=== PATIENT | male | born 1955 | race Caucasian/White ===

== ENCOUNTER 2023-02-19 08:16 | Day surgery (SDC) | payer MEDICARE, SELFPAY ==
[2023-02-19 08:37] VITALS: BP 147/92; PULSE 80; RESP 16; TEMP 36.1; O2SAT 97; BMI 39.2
[2023-02-19] MEDS: Lactated Ringers 1,000 ML 15 ML IV (08:45)
--- NOTE | 2023-02-19 09:18 | PCM.HP.STD ---
[facility] - General General Date of Admission: 02/19/23 Date of Service: 02/19/23 Chief Complaint: Screening colonoscopy HPI Narrative ERIK BEDOYA, is a 68 M who presents today for screening colonoscopy. He has not had a colonoscopy in the past. He has past have hypertension and mild gastroesophageal reflux disease both of which are controlled on medications. He is not having chest pain or shortness of breath. He does not have any nausea, vomiting or diarrhea. Overall is in very good health. [facility] Medical History (Updated 02/12/23 @ 14:25 by Sonal Prado) Arthritis Back pain Easy bruising Former smoker GERD (gastroesophageal reflux disease) History of stress test HTN (hypertension) Hyperlipidemia Wears glasses Wears hearing aid Home Medications lisinopril 30 mg tablet 30 mg PO DAILY 01/17/23 [History Last Taken 02/19/23] omeprazole 20 mg capsule,delayed release 20 mg PO DAILY 01/17/23 [History Last Taken 02/19/23] Allergy/AdvReac Type Severity Reaction Status Date / Time No Known Allergies Allergy Verified 02/19/23 08:32 Surgical History (Updated 02/12/23 @ 14:25 by Sonal Prado) History of excision of lesion Hx of left cataract extraction Hx of right cataract extraction Social History (Updated 01/17/23 @ 08:33 by Vandana Olivares) household members: none housing: apartment current occupational status: retired Smoking Status: Former smoker alcohol intake: never substance use type: does not use ROS Review of Systems ROS Unobtainable: other Constitutional Constitutional: Denies fatigue, fever(s), poor appetite, weight gain or weight loss ENT HEENT: Denies mouth lesions Cardiovascular Cardiovascular: Denies abdominal bloating, abdominal edema or abdominal pain Respiratory/Chest Respiratory/Chest: Denies change in mental status, change in phlegm color, chest congestion or chest tightness Gastrointestinal Gastrointestinal: Denies belching, bloating, change in bowel habits, change in stool character, chewing difficulty, coffee ground emesis, constipation, cramping, diarrhea, dyspepsia, dysphagia, early satiety, excessive flatus, fecal incontinence, heartburn, hematemesis, hematochezia, hemorrhoids, loose stools, melena, nausea, odynophagia, rectal bleeding, tenesmus, vomiting or weight changes Genitourinary Genitourinary: Denies abdominal discomfort, burning urination or itching Musculoskeletal Musculoskeletal: Reports as per HPI; Denies muscle weakness or myalgias Integumentary Integumentary: Denies jaundice Neurologic Neurologic: Denies lack of coordination or weakness Psychiatric Psychiatric: Denies confusion, depression, memory loss, mood swings, paranoia or suicidal ideation Endocrine Endocrinology: Denies systems reviewed and no addt'l complaints, except as documented Hematologic/Lymphatic Hematologic/Lymphatic: Denies anemia, easy bleeding, easy bruising or lymphadenopathy Allergic/Immunologic Allergic/Immunologic: Denies systems reviewed and no addt'l complaints, except as documented Vital Signs Vital Signs Vital Signs: 02/19/23 08:37 02/19/23 08:37 Temperature 97 F L Temperature Source Temporal Pulse Rate 80 Respiratory Rate 16 Respiratory Pattern Normal Blood Pressure 147/92 H Blood Pressure Mean 110 Blood Pressure Source Monitor Blood Pressure Position Sitting Blood Pressure Location Right Arm Pulse Ox 97 Oxygen Delivery Method Room Air Weight Weight: 273 lb 5.971 oz Body Mass Index (BMI) 39.2 Physical Exam Const alert General Appearance: cooperative Orientation / Consciousness: oriented to person HEENT hearing grossly normal bilaterally Head and Scalp: normal to inspection Face and Sinus: face symmetric Nose: external nose normal Mouth: oral and palatal mucosa normal Eyes conjunctivae normal General Eye: normal appearance of both eyes Neck full ROM General: normal visual inspection Lymph Lymphatic: no lymphadenopathy noted Chest inspection of chest normal and palpation of chest normal Chest: symmetrical chest wall rise Resp normal respiratory effort Effort and Inspection: able to speak in complete sentences Cardio regular rate GI non-distended Percussion: normal to percussion Rectal Exam: deferred Neuro Speech: speech normal Gait (Neuro): normal gait Assessment & Plan Assessment/Plan (1) Encounter for screening for malignant neoplasm of colon: PLAN: He was explained alternatives, risk, benefits include not withstanding bleeding, infection, sepsis, perforation, need for emergent surgery and . He will have an ASA of 3.
[2023-02-19 09:40] VITALS: BP 115/80; BP 147/92; PULSE 74; RESP 16; TEMP 36.1; O2SAT 94
--- NOTE | 2023-02-19 09:42 | OP.COLON_ITS ---
Patient Name: Fritz Casanova Procedure Date: 02/19/2023 9:19 AM Date of : 1955 Age: 68 Procedure: Colonoscopy Indications: Screening for colorectal malignant neoplasm Providers: Garrett Tipton DO Referring MD: Chastity Ortiz [facility] Medicines: Monitored Anesthesia Care Patient Profile: This is a 68 year old male. Refer to note in patient chart for documentation of history and physical. Last Colonoscopy: none. The patient's first colonoscopy is today. Complications: No immediate complications. Procedure: Pre-Anesthesia Assessment: - Prior to the procedure, a History and Physical was performed, and patient medications and allergies were reviewed. The patient is competent. The risks and benefits of the procedure and the sedation options and risks were discussed with the patient. All questions were answered and informed consent was obtained. Patient identification and proposed procedure were verified by the physician in the pre-procedure area. Mental Status Examination: alert and oriented. Respiratory Examination: clear to auscultation. CV Examination: normal. Prophylactic Antibiotics: The patient does not require prophylactic antibiotics. Prior Anticoagulants: The patient has taken no anticoagulant or antiplatelet agents. ASA Grade Assessment: II - A patient with mild systemic disease. After reviewing the risks and benefits, the patient was deemed in satisfactory condition to undergo the procedure. The anesthesia plan was to use monitored anesthesia care (MAC). Immediately prior to administration of medications, the patient was re-assessed for adequacy to receive sedatives. The heart rate, respiratory rate, oxygen saturations, blood pressure, adequacy of pulmonary ventilation, and response to care were monitored throughout the procedure. The physical status of the patient was re-assessed after the procedure. After I obtained informed consent, the scope was passed under direct vision. Throughout the procedure, the patient's blood pressure, pulse, and oxygen saturations were monitored continuously. The Colonoscope was introduced through the anus and advanced to the cecum, identified by appendiceal orifice and ileocecal valve. The colonoscopy was performed without difficulty. The patient tolerated the procedure well. The quality of the bowel preparation was adequate. The ileocecal valve, appendiceal orifice, and rectum were photographed. Scope In: 9:27:37 AM Scope Withdrawal Time 0 hours 7 minutes 13 seconds Scope Out: 9:36:56 AM Total Procedure Duration Time 0 hours 9 minutes 19 seconds Findings: The perianal and digital rectal examinations were normal. Non-bleeding internal hemorrhoids were found during retroflexion. The hemorrhoids were medium-sized and Grade II (internal hemorrhoids that prolapse but reduce spontaneously). A few medium-mouthed diverticula were found in the recto-sigmoid colon and sigmoid colon. The exam was otherwise without abnormality on direct and retroflexion views. Impression: - Non-bleeding internal hemorrhoids. - Diverticulosis in the recto-sigmoid colon and in the sigmoid colon. - The examination was otherwise normal on direct and retroflexion views. - No specimens collected. Recommendation: - Discharge patient to home. - Resume previous diet. - Continue present medications. - Repeat colonoscopy in 10 years for screening purposes. Procedure Code(s): --- Professional --- G0121, Colorectal cancer screening; colonoscopy on individual not meeting criteria for high risk CPT copyright 2021 [employer]. All rights reserved. The codes documented in this report are preliminary and upon audograph operator review may be revised to meet current compliance requirements. Garrett Tipton DO 02/19/2023 9:42:06 AM This report has been signed electronically. Number of Addenda: 0 Note Initiated On: 02/19/2023 9:19 AM
--- NOTE | 2023-02-19 09:42 | OP.CCLET_ITS ---
02/19/2023 Chastity Ortiz [facility] Re : Colonoscopy procedure for Fritz Patterson [facility] This procedure was performed on Sunday, February 19, 2023. My impressions and recommendations are as follows: Impressions : - Non-bleeding internal hemorrhoids. - Diverticulosis in the recto-sigmoid colon and in the sigmoid colon. - The examination was otherwise normal on direct and retroflexion views. - No specimens collected. Recommendations : - Discharge patient to home. - Resume previous diet. - Continue present medications. - Repeat colonoscopy in 10 years for screening purposes. My findings are described in the full procedure note, which is enclosed. If I can be of further assistance, please feel free to contact me at . Sincerely, Garrett Tipton, 02/19/2023 9:42:06 AM This report has been signed electronically.
[2023-02-19 09:45] VITALS: BP 117/82; BP 147/92; PULSE 73; RESP 18; O2SAT 93
[2023-02-19 09:50] VITALS: BP 117/79; BP 147/92; PULSE 70; RESP 18; TEMP 36.7; O2SAT 93
[2023-02-19 10:02] VITALS: BP 147/92
== END 2023-02-19 10:06 | disposition home or self-care (01) ==
LOC: EN 08:23 → AC 08:24
PROVIDERS: Visit Provider Internal Medicine Gastroenterology
PROC: 0DJD8ZZ Inspection of Lower Intestinal Tract, Via Natural or Artificial Opening Endoscopic (ICD-10-PCS; CPT 45378; principal; 2023-02-19 09:25)
DX: Z12.11 Encounter for screening for malignant neoplasm of colon (principal); K57.30 Diverticulosis of large intestine without perforation or abscess without bleeding; K64.1 Second degree hemorrhoids; Z87.891 Personal history of nicotine dependence; K21.9 Gastro-esophageal reflux disease without esophagitis; I10 Essential (primary) hypertension; E78.5 Hyperlipidemia, unspecified
CPT/HCPCS: G0121; J7120; J2405

== ENCOUNTER → 2023-02-28 | Outpatient (CLI) | payer MEDICARE, SELFPAY ==
--- NOTE | 2023-02-28 07:40 | AAAS_ITS ---
Reason For Study: AAA Screening Aorta Measurements Aorta Doppler Measurements Proximal aorta measures2.41 x 2.47cm. in cross- Peak systolic flow velocities within the proximal sectional axis. aorta measure 110.4 cm/sec. Proximal aorta measures2.42cm. in longitudinal Peak systolic flow velocities within the mid aorta axis. measure 92.2 cm/sec. Mid aorta measures2.11 x 2.01cm. in cross- Peak systolic flow velocities within the distal sectional axis. aorta measure 92.2 cm/sec. Mid aorta measures2.15cm. in longitudinal axis. Distal aorta measures2.10 x 2.12cm. in cross- sectional axis. Distal aorta measures2.08cm. in longitudinal axis. Heterogenous irregular plaque noted at distal AO / bifurcation. Left Iliac Artery Left iliac artery measures 1.70 x1.52 cm. in the cross-sectional axis. Left iliac artery measures 1.73 cm. in the longitudinal axis. Peak systolic velocity in the left iliac artery measures 218.6 cm/sec. Heterogenous irregular plaque noted at proximal portion of vessel. Right Iliac Artery Right iliac artery measures 1.44 cm. in the longitudinal axis. Right iliac artery measures 1.47 x 1.47 cm. in the cross-sectional axis. Peak systolic velocity in the right iliac artery measures 65.1 cm/sec. Procedure Aorta IVC Iliac vasculature or bypass grafts [id number]. The exam was diagnostic. Exam performed in department. VL/AAA Screening Interpretation Summary Maximal aortic dimensions approximately at 2.41 x 2.47 cm in diameter which is normal. Irregular plaque noted at the aortoiliac bifurcation Ectasia of the left common iliac artery measuring 1.7 x 1.52 cm in diameter. In creased flow velocity at 218 cm/s flow suggesting occlusive disease. Ectasia of the right common iliac artery measuring 1.47 x 1.47 cm in diameter Ordering Physician: Luma Quinonez Referring Physician: STEVEN TUCKER Performed By: Jose Guadalupe Boston, RVT
--- OUTSIDE RECORDS SUMMARY | 2023-02-28 07:44 | XMS RPT_ITS | CCD ---
Author Name Unknown Address [address] [place] [address] Organization [facility] Care Team Providers Care Double End Tenoner Setter Name Role Phone JEN BOYLE Attending Unavailable JEN BOYLE Primary Care Unavailable JEN BOYLE Admitting Unavailable Encounters Encounter Date Encounter Type Care Provider Facility Start: 04-25-2020 End: 04-25-2020 Patient encounter procedure JEN BOYLE [facility] Summary Purpose Family History No Family History Records Found Advance Directives No Advanced Directives Records Found Additional Source Comments (unrecognized sect ion and content) No Status Records Found INFORMATION SOURCE (unrecogn ized section and content) FOR RECORDS PERTAINING TO PATIENTS WHO ARE OR HAVE BEEN ENROLLED IN A CHEMICAL DEPENDENCY/SUBSTANCEABUSE PROGRAM, SOME INFORMATION MAY BE OMITTED. This clinical summary was aggregated from multiple sources. Caution should be exercised in using it in the provision of clinical care. This summary normalizes information from multiple sources, and as a consequence, information in this document may materially change the coding, format and clinical context of patient data. In addition, data may be omitted in some cases. CLINICAL DECISIONS SHOULD BE BASED ON THE PRIMARY CLINICAL RECORDS. [facility] [employer] [facility]. provides no warranty or guarantee of the accuracy or completeness of information in this document.
== END | disposition home or self-care (01) ==
PROVIDERS: Referring Provider Nurse Practitioner Family; Visit Provider Nurse Practitioner Family
DX: Z00.00 Encounter for general adult medical examination without abnormal findings (principal)
CPT/HCPCS: 76706

== ENCOUNTER → 2023-03-26 | Outpatient (CLI) | payer MEDICARE, SELFPAY ==
--- NOTE | 2023-03-26 08:42 | ART_ITS ---
Reason For Study: PVD Procedure A bilateral lower extremity continuous wave Doppler with analog waveform analysis,segmental pressures,and ankle brachial indexes with exercise. Left Segmental Pressures Left brachial= 145mmHg. Left posterior tibial artery = 186mmHg. Left dorsalis pedis artery = 171mmHg. Left digit = 129 mmHg. The left dorsalis pedis waveforms are triphasic. The left posterior tibial artery waveforms are triphasic. Right Segmental Pressures Right brachial= 148mmHg. Right posterior tibial artery = 194mmHg. Right dorsalis pedis artery = 184mmHg. Right digit = 94 mmHg. The right dorsalis pedis waveforms are triphasic. The right posterior tibial artery waveforms are triphasic. Indices The right ankle brachial index by the dorsalis pedis is 1.24. The right ankle brachial index by the posterior tibial artery is 1.31. The right digital-brachial index is 0.64. The left ankle brachial index by the dorsalis pedis is 1.16. The left ankle brachial index by the posterior tibial artery is 1.26. The left digital-brachial index is 0.87. VL/Lower Ext Art Exam w/ Exercise Interpretation Summary Right GOKUL 1.31, normal. Doppler/PVR waveforms of the right leg normal at rest. TBI diminished, pedal/digit disease vs spasm Right lower extremity exhibits normal response to exercise. Left GOKUL 1.26, normal. TBI and Doppler/PVR waveforms of the left leg normal at rest. Left lower extremity exhibits normal response to exercise. Ordering Physician: Radha Melara Referring Physician: [facility] Performed By: Malika Mendes RVT
--- OUTSIDE RECORDS SUMMARY | 2023-03-26 09:02 | XMS RPT_ITS | CCD ---
Author Name Unknown Address [address] [place] [address] Organization [facility] Care Team Providers Care Court Bailiff Or Sheriff Name Role Phone JEN BOYLE Attending Unavailable JEN BOYLE Primary Care Unavailable JEN BOYLE Admitting Unavailable Encounters Encounter Date Encounter Type Care Provider Facility Start: 04-25-2020 End: 04-25-2020 Patient encounter procedure JEN BOYLE [facility] Summary Purpose Family History No Family History [...] BE BASED ON THE PRIMARY CLINICAL RECORDS. [facility] [employer] [facility]. provides no warranty or guarantee of the accuracy or completeness of information in this document.
== END | disposition home or self-care (01) ==
LOC: CVS 08:41
PROVIDERS: Referring Provider Physician Assistant; Visit Provider Physician Assistant
DX: I73.9 Peripheral vascular disease, unspecified (principal)
CPT/HCPCS: 93924

== ENCOUNTER → 2023-08-27 | Outpatient (CLI) | payer MEDICARE, SELFPAY | END | disposition home or self-care (01) | LOC: SL 19:56 | PROVIDERS: PCP Nurse Practitioner Family; Referring Provider Nurse Practitioner Family; Visit Provider Nurse Practitioner Family | DX: G47.33 Obstructive sleep apnea (adult) (pediatric) (principal) | CPT/HCPCS: 95811 ==

== ENCOUNTER → 2023-09-16 | Outpatient (CLI) | payer MEDICARE, SELFPAY | END | disposition home or self-care (01) | LOC: SL 11:30 | PROVIDERS: PCP Nurse Practitioner Family; Referring Provider Nurse Practitioner Acute Care; Visit Provider Nurse Practitioner Acute Care | DX: R69 Illness, unspecified (principal) ==

== ENCOUNTER → 2023-10-07 | Outpatient (CLI) | payer MEDICARE, SELFPAY ==
[2023-10-07 13:34] LABS: Cholesterol 107 mg/dL (200); High Density Lipoprotein 46 mg/dL; Triglycerides 115 mg/dL; Very Low Density Lipoprotein 23 mg/dL (5-40)
== END | disposition home or self-care (01) ==
LOC: LAB.FUTURE 08:32 → VSLAB 12:04
PROVIDERS: PCP Nurse Practitioner Family; Visit Provider Nurse Practitioner Family
DX: E78.5 Hyperlipidemia, unspecified (principal)
CPT/HCPCS: 36415; 80061

== ENCOUNTER → 2024-01-06 | Outpatient (CLI) | payer MEDICARE, SELFPAY ==
[2024-01-06 12:46] LABS: Absolute Lymphocyte Count 1.72 X10^3/uL (0.83-4.51); Absolute Neutrophil Count 2.1 X10^3/uL (2.0-7.7); Basophil# 0.05 X10^3/uL; Basophil% 1.1 % (0-1); Eosinophil# 0.18 X10^3/uL; Hematocrit 43.7 % (40-54); Hemoglobin 13.9 g/dL (13.0-16.5); Lymphocyte # 1.72 X10^3/ul (0.83-4.51); Lymphocyte % 38.1 % (19-41); Mean Corp Hgb Conc 31.8 g/dL (32-36); Mean Corpuscular Hgb 27.6 pg (27.0-32.0); Mean Corpuscular Volume 86.7 fL (80-94); Monocyte# 0.45 X10^3/uL; NRBC Flagged by Analyzer 0 % (0-5); Neutrophil # 2.11 X10^3/uL (2.7-7.7); Neutrophil % 46.6 % (47-70); Platelet Count 219 K/mm3 (150-450); RBC Distribution Width CV 15.7 % (11.6-14.6); RBC Distribution Width SD 49.6 fl (35.1-43.9); Red Blood Count 5.04 M/mm3 (4.6-6.2); White Blood Count 4.5 K/mm3 (4.4-11.0)
[2024-01-06 13:14] LABS: ALB/GLOB Ratio 0.9 RATIO (0.9-2.4); AST(SGOT) 23 U/L (15-37); Alanine Aminotransfer ALT/SGPT 26 U/L (16-61); Albumin, Serum 3.5 g/dL (3.2-5.0); Alkaline Phosphatase 46 U/L (45-117); Anion Gap 5 (5-15); BUN 21 mg/dL (7-18); BUN/Creat Ratio 19.1 RATIO (10-20); Calcium,Total 9.5 mg/dL (8.5-10.1); Chloride 109 mmol/L (98-107); Cholesterol 110 mg/dL (200); EST Glomerular Filtration Rate 71 mL/min (>60); Est Glom Filt Rate - Afr Amer 86 mL/min (>60); Globulin 3.9 g/dL (2.2-4.2); Glucose 102 mg/dL (74-106); High Density Lipoprotein 49 mg/dL; Potassium 4.4 mmol/L (3.5-5.1); Protein, Total 7.4 g/dL (6.4-8.2); Sodium Level 138 mmol/L (136-145); Thyroid Stim Hormone (TSH) 0.899 uIU/mL (0.358-3.740); Triglycerides 67 mg/dL; Very Low Density Lipoprotein 13 mg/dL (5-40)
[2024-01-06 13:20] LABS: Microalbumin,Random Urine 5.8 mg/L (NO RANGE EST.)
== END | disposition home or self-care (01) ==
LOC: VSLAB 10:41
PROVIDERS: PCP Nurse Practitioner Family; Visit Provider Nurse Practitioner Family
DX: I10 Essential (primary) hypertension (principal); E11.65 Type 2 diabetes mellitus with hyperglycemia; E78.5 Hyperlipidemia, unspecified
CPT/HCPCS: 36415; 80053; 80061; 82043; 84443; 85025

== ENCOUNTER → 2024-03-22 | Outpatient (CLI) | payer MEDICARE, SELFPAY ==
--- NOTE | 2024-03-22 08:43 | AAVD_ITS ---
Reason For Study: Bilateral Iliac Ectasia Aorta Measurements Aorta Doppler Measurements Proximal aorta measures2.55 x 2.65cm. in cross- Peak systolic flow velocities within the proximal sectional axis. aorta measure 88.6 cm/sec. Proximal aorta measures2.50cm. in longitudinal Peak systolic flow velocities within the mid aorta axis. measure 90.4 cm/sec. Mid aorta measures2.18 x 2.45cm. in cross- Peak systolic flow velocities within the distal sectional axis. aorta measure 104.9 cm/sec. Mid aorta measures2.13cm. in longitudinal axis. Distal aorta measures2.08 x 2.16cm. in cross- sectional axis. Distal aorta measures2.13cm. in longitudinal axis. Left Iliac Artery Left iliac artery measures 1.26 x 1.35 cm. in the cross-sectional axis. Left iliac artery measures 1.36 cm. in the longitudinal axis. Peak systolic velocity in the left iliac artery measures 83.7 cm/sec. Right Iliac Artery Right iliac artery measures 1.53 x 1.48 cm. in the cross-sectional axis. Right iliac artery measures 1.49 cm. in the longitudinal axis. Peak systolic velocity in the right iliac artery measures 95.9 cm/sec. Procedure Aorta IVC Iliac vasculature or bypass grafts [id number]. The exam was diagnostic. Exam performed in department. VL/Abd Aortic/IVC Duplex scan Interpretation Summary Aorta patent with ectasia to 2.65 cm Right iliac artery patent with ectasia to 1.53 cm Left iliac artery patent with ectasia to 1.35 cm Ordering Physician: Radha Melara Referring Physician: Luma Quinonez Performed By: Jose Guadalupe Boston RVT
== END | disposition home or self-care (01) ==
LOC: CVS 08:42
PROVIDERS: PCP Nurse Practitioner Family; Referring Provider Physician Assistant; Visit Provider Physician Assistant
DX: I72.3 Aneurysm of iliac artery (principal); I73.9 Peripheral vascular disease, unspecified
CPT/HCPCS: 93978

== ENCOUNTER → 2024-07-06 | Outpatient (CLI) | payer MEDICARE, SELFPAY ==
[2024-07-06 12:44] LABS: Absolute Lymphocyte Count 1.53 X10^3/uL (0.83-4.51); Absolute Neutrophil Count 2.4 X10^3/uL (2.0-7.7); Basophil# 0.03 X10^3/uL; Basophil% 0.6 % (0-1); Eosinophil# 0.11 X10^3/uL; Eosinophils% 2.4 % (0-5); Hematocrit 41.7 % (40-54); Hemoglobin 13.6 g/dL (13.0-16.5); Lymphocyte # 1.53 X10^3/ul (0.83-4.51); Lymphocyte % 32.8 % (19-41); Mean Corp Hgb Conc 32.6 g/dL (32-36); Mean Corpuscular Hgb 29.2 pg (27.0-32.0); Mean Corpuscular Volume 89.5 fL (80-94); Mean Platelet Vol. 9.3 fl (6.2-12.0); Monocyte# 0.56 X10^3/uL; NRBC Flagged by Analyzer 0 % (0-5); Neutrophil # 2.43 X10^3/uL (2.7-7.7); Platelet Count 196 K/mm3 (150-450); RBC Distribution Width CV 14.9 % (11.6-14.6); RBC Distribution Width SD 48.6 fl (35.1-43.9); Red Blood Count 4.66 M/mm3 (4.6-6.2); White Blood Count 4.7 K/mm3 (4.4-11.0)
[2024-07-06 13:06] LABS: Microalbumin,Random Urine < 12.0 mg/L (NO RANGE EST.)
[2024-07-06 13:26] LABS: ALB/GLOB Ratio 1.3 RATIO (0.9-2.4); AST(SGOT) 29 U/L (<=37); Alanine Aminotransfer ALT/SGPT 28 U/L (<=46); Albumin, Serum 4.1 g/dL (3.4-4.8); Alkaline Phosphatase 53 U/L (40-129); Anion Gap 10 (5-15); BUN 26 mg/dL (4-19); Calcium,Total 9.8 mg/dL (7.6-11.0); Carbon Dioxide 21.8 mmol/L (21.0-32.0); Chloride 109 mmol/L (98-108); Cholesterol 102 mg/dL (<=200); Creatinine, Serum 1.08 mg/dL (0.70-1.20); EST Glomerular Filtration Rate 75 (>60); Globulin 3.2 g/dL (2.2-4.2); Glucose 120 mg/dL (70-99); High Density Lipoprotein 39 mg/dL; Low Density Lipoprotein Calc. 47 mg/dL; PSA,Total - Annual Screen 3.27 ng/mL (0.02-4.00); Potassium 4.4 mmol/L (3.3-5.1); Protein, Total 7.2 g/dL (5.9-8.4); Sodium Level 141 mmol/L (133-145); Thyroid Stim Hormone (TSH) 0.971 uIU/mL (0.300-4.200); Total Bilirubin 0.49 mg/dL (0.00-1.30); Triglycerides 82 mg/dL; Very Low Density Lipoprotein 16 mg/dL (5-40); cholesterol:hdl ratio screen 2.63
== END | disposition home or self-care (01) ==
LOC: VSLAB 08:35
PROVIDERS: PCP Nurse Practitioner Family; Visit Provider Nurse Practitioner Family
DX: Z12.5 Encounter for screening for malignant neoplasm of prostate (principal); E11.65 Type 2 diabetes mellitus with hyperglycemia; E78.5 Hyperlipidemia, unspecified; E55.9 Vitamin D deficiency, unspecified; I10 Essential (primary) hypertension
CPT/HCPCS: 36415; 80053; 80061; 82043; 82306; 84153; 84443; 85025; G0103